=== PATIENT | male | born 1975 | race Caucasian/White ===

== ENCOUNTER → 2016-09-27 | Outpatient (CLI) | payer BC ==
--- NOTE | 2016-09-27 14:56 | MR ---
EXAMINATION TYPE: MR brain wo/w con DATE OF EXAM: 09/27/2016 2:18 PM COMPARISON: Prior MRI brain November 01, 2015 HISTORY: Follow Up for MS TECHNIQUE: Multiplanar, multisequence images of the brain and brainstem is performed without and with IV contras t, utilizing 15 mL intravenous MultiHance gadolinium contrast is administered intravenously. Demyeli nating disease protocol with additional Sagittal Flair sequence performed. FINDINGS: T2 Lesions Present : Yes Approximate Number of Lesions: Difficult to accurately measure due to confluent periventricular and p ericallosal appearance. Locations Identified : Predominantly periventricular and pericallosal lesions. No definitive infraten torial lesions. Size of Reference Lesion(s): 1. 1.9 cm x 0.8 cm x 1.7 cm on axial image 21 and sagittal image 12 left frontal coronal radiata les ion stable. 2 0.6 cm x 0.6 cm x 0.4 cm on axial image 20 and sagittal image 29 right parietal deep white matter lesion less prominent in size and intensity. Enhancing Lesion(s) Present: No T1 Hypointense Lesion(s) Present: Yes Change from Prior: Stable or perhaps minimally improved. Diffusion weighted images demonstrate no evidence of a recent infarct or other diffusion abnormality. There is no worrisome extra-axial fluid collection. The ventricular system and cisternal spaces ar e normal in size and appearance. The brain volume is age appropriate. Midline structures demonstrate normal morphology. The craniocervical junction appears within normal limits. Post contrast images demonstrate no abnormal enhancement. The dural venous sinuses appear pa tent. Moderate lobulated mucosal thickening in inferior right maxillary sinus is redemonstrated. Ther e is more mild mucosal thickening with small mucous retention cyst or polyp anteriorly in left maxill eren sinus redemonstrated. Remainder paranasal sinuses are clear. Globes are intact bilaterally. IMPRESSION: Moderate to severe confluent white matter changes presumed on basis of patient's known mu ltiple sclerosis redemonstrated. Findings stable or there may be slight improvement as the right jude etal second reference lesion is diminished in size and intensity for reference. No new or enhancing l esions are clearly evident.
== END | disposition home or self-care (01) ==
LOC: RADMRIMAIN 13:10
PROVIDERS: ATTEND Nurse Practitioner Acute Care
DX: G35 Multiple sclerosis (principal)
CPT/HCPCS: 70553; A9577

== ENCOUNTER 2018-04-17 00:08 | Emergency (ER) | payer BC, OTHER ==
[2018-04-17 00:56] VITALS: RESP 18
--- NOTE | 2018-04-17 02:20 | ED ---
Medical Clearance HPI - General Chief complaint: Drug Screen Stated complaint: [facility]-Drug Screen Time Seen by Provider: 04/17/18 01:06 Source: patient Mode of arrival: ambulatory - History of Present Illness Initial comments: 43-year-old male patient presents to the emergency department today for employment drug screening. 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 He states that protocol requires him to obtain drug screening. Patient denies any injuries or physical concerns at this time. Home medications: Home Medications Medication Instructions Recorded Confirmed Dimethyl Fumarate [Tecfidera] 240 mg PO BID 05/15/14 05/19/14 busPIRone HCL [Buspar] 7.5 mg PO BID 05/15/14 05/19/14 Allergies/Adverse reactions: Allergies Allergy/AdvReac Type Severity Reaction Status Date / Time No Known Allergies Allergy Verified 04/17/18 00:56 Review of Systems ROS Statement: Those systems with pertinent positive or pertinent negative responses have been documented in the HPI. ROS Other: All systems not noted in ROS Statement are negative. Past Medical History Past Medical History: Neurologic Disorder Additional Past Medical History / Comment(s): multiple sclerosis, multiple brain lesions History of Any Multi-Drug Resistant Organisms: None Reported Additional Past Surgical History / Comment(s): septoplasty. right index finger surgery Past Psychological History: Anxiety Smoking Status: Current every day smoker Past Alcohol Use History: Occasional Past Drug Use History: None Reported General Exam General appearance: alert, in no apparent distress Respiratory exam: Present: normal lung sounds bilaterally. Absent: respiratory distress, wheezes, rales, rhonchi, stridor Cardiovascular Exam: Present: regular rate, normal rhythm, normal heart sounds. Absent: systolic murmur, diastolic murmur, rubs, gallop, clicks Neurological exam: Present: alert, oriented X3, CN II-XII intact Psychiatric exam: Present: normal affect, normal mood Skin exam: Present: warm, dry, intact, normal color. Absent: rash Course Vital Signs 04/17/18 04/17/18 00:50 02:59 Temperature 98.0 F 97.8 F Pulse Rate 75 59 L Respiratory 18 18 Rate Blood Pressure 123/85 145/96 O2 Sat by Pulse 99 98 Oximetry Medical Decision Making - Medical Decision Making 43-year-old male patient presented to the emergency department today for appointment drug screening. Patient had no physical concerns. Physical exam is unremarkable. He will be discharged and instructed to follow-up with [facility] for any further needs. Disposition Clinical Impression: Encounter for drug screening Disposition: HOME SELF-CARE Condition: Good Additional Instructions: Follow-up with [facility] for further information. Return here immediately for any new, worsening, or concerning symptoms. Is patient prescribed a controlled substance at d/c from ED?: No Referrals: None,Stated [Primary Care Provider] - 1-2 days Time of Disposition: 02:20
[2018-04-17 03:00] VITALS: BP 145/96; PULSE 59; TEMP 97.8
== END 2018-04-17 02:59 | disposition home or self-care (01) ==
LOC: EC 00:08
DX: Z02.83 Encounter for blood-alcohol and blood-drug test (principal); G35 Multiple sclerosis; F41.9 Anxiety disorder, unspecified; F17.200 Nicotine dependence, unspecified, uncomplicated; Z79.899 Other long term (current) drug therapy
CPT/HCPCS: 99282

== ENCOUNTER → 2021-12-20 | Outpatient (CLI) | payer BC | END | disposition home or self-care (01) | LOC: RADNMMAIN 07:58 | PROVIDERS: ATTEND Internal Medicine | DX: Z53.9 Procedure and treatment not carried out, unspecified reason (principal) ==

== ENCOUNTER → 2022-04-07 | Outpatient (CLI) | payer SELFPAY ==
[2022-04-07 23:02] LABS: Basophils # (A) 0.04 X 10*3/uL (0.00-0.10); Basophils % (A) 0.5 %; Eosinophils % (A) 1.1 %; HCT 53.6 % (39.6-50.0); HGB 16.9 g/dL (13.0-17.0); Immature Grans, Automated 0.3 %; Lymphocytes # (A) 2.07 X 10*3/uL (0.90-5.00); Lymphocytes % (A) 23.4 %; MCHC 31.5 g/dL (32.0-37.0); Monocytes % (A) 5.6 %; NRBC Per 100 WBC 0 /100 WBCS (0.0-0.0); Neutrophils # (A) 6.11 X 10*3/uL (1.80-7.70); Neutrophils % (A) 69.1 %; Platelet Count 264 X 10*3/uL (140-440); RBC 5.64 X 10*6/uL (4.40-5.60); RDW 14.2 % (11.5-14.5); WBC 8.85 X 10*3/uL (4.50-10.00)
[2022-04-07 23:34] LABS: Hepatitis B Surface AB- Quant 3.5 mIU/mL; Hepatitis B Surface Antibody Nonreactive (Nonreactive)
[2022-04-08 01:00] LABS: African American GFR (CKD) 122.1 (60.0-200.0); Albumin 4.4 g/dL (3.8-4.9); Albumin/Globulin Ratio 1.82 (1.60-3.17); Anion Gap 13.4 mmol/L (10.00-18.00); BUN/Creat Ratio 11.64 Ratio (12.00-20.00); Blood Urea Nitrogen 9.7 mg/dL (9.0-27.0); Calcium 9.5 mg/dL (8.7-10.3); Carbon Dioxide 24.6 mmol/L (20.0-27.5); Globulin 2.4 g/dL (1.6-3.3); Non-African American GFR(CKD) 105.4 (60.0-200.0); Potassium 4.7 mmol/L (3.5-5.5); Total Bilirubin 0.4 mg/dL (0.30-1.20); Total Protein 6.8 g/dL (6.2-8.2)
[2022-04-08 10:41] LABS: V. zoster Source Blood - Plasma
== END | disposition home or self-care (01) ==
LOC: LABWHC1 15:44
PROVIDERS: ATTEND Nurse Practitioner Acute Care
DX: G35 Multiple sclerosis (principal); R42 Dizziness and giddiness; R41.3 Other amnesia; E55.9 Vitamin D deficiency, unspecified; E53.9 Vitamin B deficiency, unspecified
CPT/HCPCS: 36415; 80053; 82306; 82607; 84207; 85025; 86706; 87798

== ENCOUNTER → 2023-03-17 | Outpatient (CLI) | payer OTHER ==
--- NOTE | 2023-03-18 07:28 | XR ---
EXAMINATION TYPE: XR lumbosacral spine min 4V DATE OF EXAM: 03/17/2023 5:11 PM INDICATION: Patient age:Male; 48 years old; Reason for study: M54.50 LOW BACK PAIN, UNSPECIFIED; [facility]. COMPARISON: None TECHNIQUE: Frontal, lateral , bilateral oblique and coned in L5-S1 lateral views of the spine. FINDINGS: No evidence of any acute osseous pathology. No evidence of loss of vertebral body height i s seen. There is normal alignment of the lumbar vertebral bodies. Mild scattered disc space narrowing . Multilevel marginal osteophyte formation throughout the visualized spine. There is facet joint arth ropathy throughout the spine. Scattered at least mild neural foraminal stenosis. IMPRESSION: 1. No acute fracture. 2. Mild multilevel disc degeneration.
== END | disposition home or self-care (01) ==
LOC: RADXRMAIN 16:54
PROVIDERS: ATTEND Family Medicine
DX: M51.37 Other intervertebral disc degeneration, lumbosacral region (principal); M47.817 Spondylosis without myelopathy or radiculopathy, lumbosacral region
CPT/HCPCS: 72110